=== PATIENT | female | born 1995 ===

== ENCOUNTER 2016-08-24 00:04 | Emergency (ER) | payer SELFPAY ==
[~2016-08-24] VITALS: Ht 160 cm; Wt 65.5 kg
[2016-08-24 00:07] VITALS: Ht 160 cm; Wt 65.5 kg
[2016-08-24] MEDS ORDERED: ACETAMINOPHEN 325 MG TAB PO STA (01:50)
--- NOTE | 2016-08-24 02:55 | RADRPT ---
PROCEDURE: ULTRASOUND OBSTETRICAL CLINICAL INDICATION: 21-year-old female with vaginal bleeding. TECHNIQUE: Multiple sonographic images of the pelvis were obtained utilizing a transabdominal and endovaginal technique. The images were reviewed on a PACS workstation. COMPARISON: None. FINDINGS: The uterus is visualized and measures 7.7 x 3.7 x 4.1 cm. The endometrial echo complex is within nor mal limits and measures 3.7 mm. There is no sonographic evidence for an intrauterine gestation. Ther e is no evidence for free fluid. The right ovary has a normal echotexture and measures 3.1 x 2.3 x 1 .7 cm. The left ovary has a normal echotexture and measures 3.8 x 2.2 x 2.1 cm. There is flow iden tified within the ovaries bilaterally. No adnexal masses are noted. IMPRESSION: No sonographic evidence for an intrauterine gestation. If the patient has a positive test , an ectopic cannot be excluded. Clinical correlation is necessary. .Lucho Steiner MD, MD Date Time Electronically viewed and signed by .Lucho Steiner MD, on 08/24/2016 02:55 .M/
[2016-08-24 03:13] LABS: ADD UMIC YES; URINE BILIRUBIN (Dip) NEGATIVE (NEGATIVE); URINE BLOOD (Dip) 3+ (NEGATIVE); URINE COLOR YELLOW (YELLOW); URINE GLUCOSE (Dip) NEGATIVE (NEGATIVE); URINE KETONES (Dip) NEGATIVE (NEGATIVE); URINE LEUKOCYTE ESTERASE (Dip) NEGATIVE (NEGATIVE); URINE NITRITE (Dip) NEGATIVE (NEGATIVE); URINE TOTAL PROTEIN (Dip) TRACE (NEGATIVE); URINE UROBILINOGEN (Dip) 0.2 E.U./dL (0.1-1.0)
[2016-08-24 03:33] LABS: SQUAMOUS EPITHELIAL CELL,UR FEW; URINE RBCS >200 /HPF (0)
[2016-08-24 03:34] LABS: BACTERIA,URINE OCCASIONAL
[2016-08-24 03:39] LABS: ADD SCAN DIFF NO
[2016-08-24 03:41] LABS: BASOPHILS % 0.3 % (0.0-2.0); EOSINOPHILS # 1.1 10^3/ul (0.0-0.5); EOSINOPHILS % 8.5 % (0.0-7.0); HEMATOCRIT 41.6 % (37.0-47.0); LYMPHOCYTES # 3.6 10^3/ul (0.8-2.9); LYMPHOCYTES % 29.2 % (15.0-51.0); MEAN CORPUSCULAR HEMOGLOBIN 30.8 pg (29.0-33.0); MEAN CORPUSCULAR HGB CONC 33.7 g/dl (32.0-37.0); MEAN CORPUSCULAR VOLUME 91.4 fl (82.0-101.0); MEAN PLATELET VOLUME 10.6 fl (7.4-10.4); MONOCYTE # 0.6 10^3/ul (0.3-0.9); NEUTROPHILS % 56.8 % (39.0-77.0); PLATELET COUNT 250 10^3/UL (140-415); RED BLOOD COUNT 4.55 10^6/ul (4.20-5.40); RED CELL DISTRIBUTION WIDTH 12.3 % (11.5-14.5); WHITE BLOOD COUNT 12.3 10^3/ul (4.8-10.8)
[2016-08-24 04:36] VITALS: BP 125/81; PULSE 67; RESP 18
[2016-08-24] MEDS ORDERED: ACET325T33 PO (05:44)
--- NOTE | 2016-08-24 06:01 | ERD ---
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 States that she has had to change multiple pads since earlier this morning. States that she does not have an SPECIAL NEEDS TE[facility]ER. Reports that her last menses was on June 19, 2016. Denies any vaginal discharge, abdominal pain, nausea, vomiting, diarrhea, constipation, chest pain, shortness of breath, fever, chills. ROS All systems reviewed and are negative except as per history of present illness. Medications Home Meds Active Scripts Acetaminophen* (Tylenol*) 325 Mg Tablet, 1 TAB PO Q6 Y for PAIN AND OR ELEVATED TEMP, #20 TAB Prov:MIMI ROMAN PA-C 08/24/16 Allergies Allergies: Coded Allergies: No Known Allergy (Unverified , 08/24/16) PMhx/Soc Medical and Surgical Hx: pt denies Medical Hx, pt denies Surgical Hx History of Surgery: No Anesthesia Reaction: No Hx Neurological Disorder: No Hx Respiratory Disorders: No Hx Cardiac Disorders: No Hx Psychiatric Problems: No Hx Miscellaneous Medical Probl: No Hx Alcohol Use: No Hx Substance Use: No Hx Tobacco Use: Yes (former smoker) Smoking Status: Former smoker Physical Exam Vitals Vital Signs Date Time Temp Pulse Resp B/P Pulse Ox O2 Delivery O2 Flow Rate FiO2 08/24/16 04:36 67 18 125/81 100 Room Air 08/24/16 00:07 97.4 101 20 136/80 100 Physical Exam Const: Rep-adk-fzbvdmyaq, well-nourished. In no acute distress. Head: Atraumatic, normocephalic Eyes: Normal Conjunctiva without injection. No purulent discharge. ENT: Normal external ear, nose. Moist oropharynx without tonsillar exudates. Non -erythematous pharynx. Uvula midline. No drooling. No trismus. Neck: No cervical midline tenderness. Full range of motion. No meningismus. No cervical lymphadenopathy. No JVD. Resp: Clear to auscultation bilaterally. No wheezing, rhonchi, rales, or crackles. No accessory muscle use. No retractions. Cardio: Regular rate and rhythm. No murmurs, rubs or gallops. Abd: Soft, slight lower pelvic tenderness, non distended. Normal bowel sounds. No palpable masses. No rebound tenderness. No guarding. Negative McBurney's point. Negative psoas sign. Negative obturator sign. Skin: No petechiae or rashes Back: No midline tenderness. No CVA tenderness. Ext: No cyanosis, or edema. Neur: Awake and alert. Normal gait. Normal coordination. Psych: Normal Mood and Affect Result Diagram: 08/24/16 0308 Results 24 hrs Laboratory Tests Test 08/24/16 03:00 08/24/16 03:08 Urine Bacteria OCCASIONAL Urine Bilirubin NEGATIVE Urine Clarity CLOUDY Urine Color YELLOW Urine Glucose NEGATIVE% Urine Hemoglobin 3+ Urine Ketones NEGATIVE Urine Leukocyte Esterase NEGATIVE Urine Microscopic RBC >200/HPF Urine Microscopic WBC 2-5/HPF Urine Nitrite NEGATIVE Urine Specific [place] >=1.030 Urine Squamous Epithelial Cells FEW Urine Total Protein TRACE Urine Urobilinogen 0.2 E.U./dL Urine pH 5.5 Basophils # 0.010^3/ul Basophils % 0.3% Beta HCG, Quantitative < 2.4mIU/ml Eosinophils # 1.110^3/ul Eosinophils % 8.5% Hematocrit 41.6% Hemoglobin 14.0g/dl Lymphocytes # 3.610^3/ul Lymphocytes % 29.2% Mean Corpuscular Hemoglobin 30.8pg Mean Corpuscular Hemoglobin Concent 33.7g/dl Mean Corpuscular Volume 91.4fl Mean Platelet Volume 10.6fl Monocytes # 0.610^3/ul Monocytes % 5.0% Neutrophils # 7.010^3/ul Neutrophils % 56.8% Nucleated Red Blood Cells # 0.010^3/ul Nucleated Red Blood Cells % 0.0/100WBC Platelet Count 16719^3/UL Red Blood Count 4.5510^6/ul Red Cell Distribution Width 12.3% White Blood Count 12.310^3/ul Current Medications Medications (Trade) Dose Ordered Sig/Elvia Route PRN Reason Start Time Stop Time Status Last Admin Dose Admin Acetaminophen (Tylenol Tab) 650 mg ONCE STAT PO 08/24/16 01:50 08/24/16 01:53 DC 08/24/16 02:56 Procedures/MDM This is a 21-year-old female with 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 Patient is afebrile and nontoxic-appearing. Patient has normal vital signs. An ultrasound, beta- hCG, CBC, type and RH, UA was ordered to evaluate patient. CBC: No evidence of severe infection or anemia Urine: No elevation in nitrites, leukocyte esterase, hematuria. No evidence of UTI Rh: O negative. Patient received Rhogam here in the ED. beta Hcg: Less than 2.4 PROCEDURE: ULTRASOUND OBSTETRICAL CLINICAL INDICATION: 21-year-old female with vaginal bleeding. TECHNIQUE: Multiple sonographic images of the pelvis were obtained utilizing a transabdominal and endovaginal technique. The images were reviewed on a PACS workstation. COMPARISON: None. FINDINGS: The uterus is visualized and measures 7.7 x 3.7 x 4.1 cm. The endometrial echo complex is within normal limits and measures 3.7 mm. There is no sonographic evidence for an intrauterine gestation. There is no evidence for free fluid. The right ovary has a normal echotexture and measures 3.1 x 2.3 x 1.7 cm. The left ovary has a normal echotexture and measures 3.8 x 2.2 x 2.1 cm. There is flow identified within the ovaries bilaterally. No adnexal masses are noted. IMPRESSION: No sonographic evidence for an intrauterine gestation. If the patient has a positive test, an ectopic cannot be excluded. Clinical correlation is necessary. Patient's bleeding symptoms have stabilized while in the department. This case was discussed with the laborist automation and controls supervisor, Dr. Disla who agreed that patient needed to receive Rhogam. At this time differentials include an early failed vs early since the beta hCG is less than 2.4 however an ectopic cannot be ruled out at this time. Patient was strictly instructed to return to the ED to repeat beta hCG and ultrasound to rule out ectopic . Low suspicion for symptomatic anemia, sepsis, PID, appendicitis, ovarian torsion, tubo-ovarian abscess, surgical abdomen, or other emergent conditions. Patient was educated that there is a risk for threatened . Discharge medications: Tylenol Patient to follow up with [facility]ER in 2 days for further evaluation and treatment. Patient is to return sooner to the ED for any worsening symptoms. Patient's questions were answered. Patient understood and agreed with discharge plan. Departure Diagnosis: Primary Impression: Vaginal bleeding Condition: Stable Patient Instructions: Vaginal Bleed in , Rho(D) Immune Globulin (Human ) Solution for injection Referrals: [facility] YOU HAVE RECEIVED A MEDICAL SCREENING EXAM AND THE RESULTS INDICATE THAT YOU DO NOT HAVE A CONDITION THAT REQUIRES URGENT TREATMENT IN THE EMERGENCY DEPARTMENT. FURTHER EVALUATION AND TREATMENT OF YOUR CONDITION CAN WAIT UNTIL YOU ARE SEEN IN YOUR DOCTORS OFFICE WITHIN THE NEXT 1-2 DAYS. IT IS YOUR RESPONSIBILITY TO MAKE AN APPOINTMENT FOR FOLOW-UP CARE. IF YOU HAVE A PRIMARY DOCTOR --you should call your primary doctor and schedule an appointment IF YOU DO NOT HAVE A PRIMARY DOCTOR YOU CAN CALL OUR PHYSICIAN REFERRAL HOTLINE AT IF YOU CAN NOT AFFORD TO SEE A PHYSICIAN YOU CAN CHOSE FROM THE FOLLOWING [facility] [address] [facility] [address] [facility] [facility] [address] [facility] [address] [facility] [address] [facility]. [facility] [address] [facility]. [facility] YOU HAVE RECEIVED A MEDICAL SCREENING EXAM AND THE RESULTS INDICATE THAT YOU DO NOT HAVE A CONDITION THAT REQUIRES URGENT TREATMENT IN THE EMERGENCY DEPARTMENT. FURTHER EVALUATION AND TREATMENT OF YOUR CONDITION CAN WAIT UNTIL YOU ARE SEEN IN YOUR DOCTORS OFFICE WITHIN THE NEXT 1-2 DAYS. IT IS YOUR RESPONSIBILITY TO MAKE AN APPOINTMENT FOR FOLOW-UP CARE. IF YOU HAVE A PRIMARY DOCTOR --you should call your primary doctor and schedule and appointment IF YOU DO NOT HAVE A PRIMARY DOCTOR YOU CAN CALL OUR PHYSICIAN REFERRAL HOTLINE AT . IF YOU CAN NOT AFFORD TO SEE A PHYSICIAN YOU CAN CHOSE FROM THE FOLLOWING [facility] INSTITUTIONS: [facility] [address] [place] [address] [facility] [address] [place] [address] [facility] [address] [place] [address] [employer] [place] [address] [facility] [address] [place] [address] OFFICE FAX , [address] [place] [address] [address]. POST, DOWELL [address] [place] [address] DR GARAY, [facility] [address] [facility], [address], [place] [address] DR ARREDONDO, [facility] [address] [place] [address] [facility] [address] [place] [address] [phone] [facility] [address] - [address] FUENTES, MAKENZIE [address], [place] [address] DR TORRE, PAMELA [address] [facility]. [address], [place] [address] DR PERDOMO, FARID [address] [place], [place] [id number] [facility] Hours: 8:00 am - 5:00 pm Additional Instructions: Volver al ED en 2 mireles para repetir la beta obra de anyi de Hcg y repetir ecografa.Regrese a estas instalaciones si no se mejora holly esperbamos o holly le dijimos. MIMI ROMAN PA-C Aug 24, 2016 06:01
== END 2016-08-24 06:05 | disposition home or self-care (01) ==
LOC: FTE 00:04
DX: O20.9 Hemorrhage in early pregnancy, unspecified (principal); R10.2 Pelvic and perineal pain; Z87.891 Personal history of nicotine dependence; Z3A.01 Less than 8 weeks gestation of pregnancy
CPT/HCPCS: 76801; 76817; 81001; 81003; 84702; 85025; 86900; 86901; 99284; J2790

== ENCOUNTER 2016-08-26 13:09 | Emergency (ER) | payer MEDICAID ==
[~2016-08-26] VITALS: Ht 152.4 cm; Wt 66.0 kg
[~2016-08-26 13:09] MED LIST: ACET325T33 PO
[2016-08-26 13:33] VITALS: Ht 152.4 cm; Wt 66.0 kg
--- NOTE | 2016-08-26 17:35 | RADRPT ---
PROCEDURE: US OB. CLINICAL INDICATION: Vaginal bleeding. TECHNIQUE: Multiple transabdominal and transvaginal sonographic images of the pelvis were obtained. COMPARISON: 08/24/2016. FINDINGS: The uterus is retroflexed in position and measures approximately 6.3 x 3.8 x 4.9 cm (61 cc). The en dometrial complex measures 2.8 mm in thickness. There is no evidence of intrauterine . Th e cervix is closed. The ovaries are not seen and likely obscured by significant surrounding gastrointestinal air. IMPRESSION: No evidence of intrauterine . Correlate with serial quantitative beta HCGs. RPTAT: AA .Rasheeda Vieira MD, MD Date Time Electronically viewed and signed by .Rasheeda Vieira MD, on 08/26/2016 17:34 .T/
--- NOTE | 2016-08-26 17:56 | ERD ---
ER Documentation Chief Complaint Date/Time DATE: 08/26/16 TIME: 17:52 Chief Complaint Pt here for follow after VB, 7 weeks . HPI This is a 21-year-old female presents to the ER for follow-up. Patient was seen here on with vaginal bleeding. She states that her vaginal bleeding has resolved. She denies any pelvic pain. Patient states she is currently 7 weeks . She states that she found out she was through a home test. A0. She denies any vaginal discharge or any urinary frequency or dysuria. ROS 12 point review of systems was done, all negative except per HPI. Medications Home Meds Active Scripts Acetaminophen* (Tylenol*) 325 Mg Tablet, 1 TAB PO Q6 Y for PAIN AND OR ELEVATED TEMP, #20 TAB Prov:MIMI ROMAN PA-C 08/24/16 Allergies Allergies: Coded Allergies: No Known Allergy (Unverified , 08/24/16) PMhx/Soc History of Surgery: No Anesthesia Reaction: No Hx Neurological Disorder: No Hx Respiratory Disorders: No Hx Cardiac Disorders: No Hx Psychiatric Problems: No Hx Miscellaneous Medical Probl: No Hx Alcohol Use: No Hx Substance Use: No Hx Tobacco Use: Yes (former smoker) Smoking Status: Never smoker Physical Exam Vitals Vital Signs Date Time Temp Pulse Resp B/P Pulse Ox O2 Delivery O2 Flow Rate FiO2 08/26/16 13:33 98.7 77 18 125/82 99 Physical Exam GENERAL: The patient is well developed and appropriate for usual state of health , in no apparent distress. HEENT: Atraumatic. CHEST: Clear to auscultation bilaterally. There are no rales, wheezes or rhonchi. HEART: Regular rate and rhythm. No murmurs, clicks, rubs or gallops. ABDOMEN: Soft, nontender and nondistended. Good bowel sounds. No rebound or guarding. No gross peritonitis. No gross organomegaly or masses. No Lovell sign or McBurney point tenderness. BACK: No midline or flank tenderness. NEURO: Alert and oriented. SKIN: The skin is warm and dry. Procedures/MDM This is a 21-year-old female presents to the ER for follow-up. Patient's urine test was negative. Upon review of her last visit patient's quantitative hCG was less than 2.4. There was no intrauterine seen. There is no intrauterine seen on today's ultrasound. I discussed this with the patient and stated that she was more than likely not as there was no elevation in her quantitative hCG. Bleeding was completely resolved and she did not have any pelvic pain. Patient preferred to go home. I shared the risks vs the benefits of leaving, patient understands and agrees. Patient is to follow-up with her primary care doctor within 1-2 days return to ER sooner if worsening. Suspicion for ectopic , missed , threatened is low. Departure Diagnosis: Primary Impression: Vaginal bleeding Condition: Stable Patient Instructions: Missed Miscarriage Additional Instructions: Llame al doctor MAANA y asnam jil JOSEY PARA DENTRO DE 1-2 CHAIREZ.Dgale a la secretaria que nosotros le instruimos hacer esta josey.Avise o llame si mendiola condicin se empeora antes de la josey. Regresa aqui si peor o no mejor. FE DOCKERY Aug 26, 2016 17:56
[2016-08-26 18:02] VITALS: BP 118/76; PULSE 75; RESP 19; TEMP 98.2
== END 2016-08-26 18:02 | disposition home or self-care (01) ==
LOC: FTE 13:09
DX: O20.9 Hemorrhage in early pregnancy, unspecified (principal); Z3A.01 Less than 8 weeks gestation of pregnancy; Z87.891 Personal history of nicotine dependence
CPT/HCPCS: 76801; 76817; Z7502